=== PATIENT | female | born 1965 | race African-American/Black ===

== ENCOUNTER 2020-06-20 05:35 | Day surgery (SDC) | payer OTHER, SELFPAY ==
[~2020-06-20] VITALS: Ht 175.3 cm; Wt 87.5 kg
[2020-06-20] MEDS ORDERED: CLINDAMYCIN 600 mg/50mL D5W 50 ML IV ONE (07:00)
[2020-06-20] MEDS ORDERED: PROPOFOL 200MG/ 20ML VIAL (DIPRIVAN) IV ONE (07:22)
[2020-06-20] MEDS ORDERED: DEXAMETHASONE SOD PHOSPHATE 4 MG/ML VIAL IVP ONE (07:22)
[2020-06-20] MEDS ORDERED: DESFLURANE 15 MIN GAS INH ONE (07:22)
[2020-06-20] MEDS ORDERED: MIDAZOLAM HCL 5 MG/5 ML VIAL IVP ONE (07:22)
[2020-06-20] MEDS ORDERED: ROCURONIUM BROMIDE 10 MG/ML (ZEMURON) IV ONE (07:22)
[2020-06-20] MEDS ORDERED: BUPIVACAINE /PF 0.25% 30 ML VIAL INJ ONE (07:22)
[2020-06-20] MEDS ORDERED: SUGAMMADEX SODIUM 200 MG/2 ML VIAL IV ONE (07:22)
[2020-06-20] MEDS ORDERED: KETOROLAC TROMETHAMINE 30 MG VIAL IVP ONE (07:22)
[2020-06-20] MEDS ORDERED: ONDANSETRON HCL 4 MG/2 ML VIAL IVP ONE (07:22)
[2020-06-20] MEDS ORDERED: fentaNYL CITRATE/PF 100 MCG/2 ML AMP IVP ONE (07:22)
[2020-06-20] MEDS ORDERED: POLYMYXIN 500,000/BACIT.10,000 UNITS in NS IRR 1 L IR ONE (07:26)
[2020-06-20] MEDS ORDERED: MIDAZOLAM HCL 2 MG/2 ML VIAL (VERSED) IVP PRN (08:15)
[2020-06-20] MEDS ORDERED: ONDANSETRON HCL 4 MG/2 ML VIAL IVP PRN (08:15)
[2020-06-20] MEDS ORDERED: LR 1,000 ML IV SCH (08:15)
[2020-06-20] MEDS ORDERED: METOCLOPRAMIDE HCL 10 MG/2 ML VIAL IVP PRN (08:15)
[2020-06-20] MEDS ORDERED: HYDROmorphone 1 MG INJ. 1 MG/ML AMPUL IVP PRN (08:15)
[2020-06-20] MEDS ORDERED: MEPERIDINE HCL/PF 25 MG/ML DISP.SYRIN IVP PRN (08:15)
[2020-06-20] MEDS ORDERED: LABETALOL 100 MG/ 20ML VIAL IVP PRN (08:15)
[2020-06-20] MEDS ORDERED: BUPIVACAINE LIPOSOME/PF 266 MG/20 ML VIAL INFIL ONE (08:43)
[2020-06-20] MEDS ORDERED: D5/0.45 NS 1,000 ML IV SCH (08:57)
[2020-06-20] MEDS ORDERED: HYDROcodone/ACETAMIN 5-325 MG TAB (NORCO/ VICODIN) PO PRN ×2 (09:00)
[2020-06-20 10:22] VITALS: BP_SYST 123
== END 2020-06-20 12:10 | disposition home or self-care (01) ==
LOC: SDS 05:35 → SMU 05:35 → SDS 12:10
PROVIDERS: ATTEND Colon & Rectal Surgery
DX: K43.6 Other and unspecified ventral hernia with obstruction, without gangrene (principal); R19.00 Intra-abdominal and pelvic swelling, mass and lump, unspecified site; F32.9 Major depressive disorder, single episode, unspecified; G35 Multiple sclerosis; Z88.0 Allergy status to penicillin; Z88.8 Allergy status to other drugs, medicaments and biological substances; Z79.899 Other long term (current) drug therapy; Z11.59 Encounter for screening for other viral diseases
CPT/HCPCS: 49561; 49568; C1781; C9290; C9399; J1100; J1885; J2250; J2405; J2704; J3010; J3490 ×2; J7120; U0003

== ENCOUNTER 2021-03-20 07:15 | Day surgery (SDC) | payer OTHER, SELFPAY ==
[~2021-03-20] VITALS: Ht 175.3 cm; Wt 87.1 kg
[~2021-03-20 07:15] MED LIST: CLINDAMYCIN 600 mg/50mL D5W 50 ML IV ONE
[2021-03-20] MEDS ORDERED: BUPIVACAINE /PF 0.25% 30 ML VIAL INJ ONE (09:30)
[2021-03-20] MEDS ORDERED: LIDOCAINE 2%, 20 ML MDV INJ ONE (09:30)
[2021-03-20] MEDS ORDERED: CLINDAMYCIN PHOSPHATE 600 mg/50mL D5W IV ONE (09:30)
[2021-03-20] MEDS ORDERED: NS IRRIG SOLN 1000 ML IR ONE (09:30)
[2021-03-20] MEDS ORDERED: LR 1,000 ML IV.SOLN IV ONE (09:30)
[2021-03-20] MEDS ORDERED: DEXAMETHASONE SOD PHOSPHATE 4 MG/ML VIAL IVP ONE (09:30)
[2021-03-20] MEDS ORDERED: SUGAMMADEX SODIUM 200 MG/2 ML VIAL IV ONE (09:30)
[2021-03-20] MEDS ORDERED: POLYMYXIN 500,000/BACIT.10,000 UNITS in NS IRR 1 L IR ONE (09:44)
[2021-03-20] MEDS ORDERED: ACETAMINOPHEN I.V. 1000 MG 100 ML IV ONE (09:45)
[2021-03-20] MEDS ORDERED: BUPIVACAINE LIPOSOME/PF 266 MG/20 ML VIAL INFIL ONE (10:20)
[2021-03-20] MEDS ORDERED: HYDROmorphone 1 INJ. 1 MG/ML CARTRIDGE IVP PRN ×2 (10:30→11:30)
[2021-03-20] MEDS ORDERED: METOCLOPRAMIDE HCL 10 MG/2 ML VIAL IVP PRN (10:30)
[2021-03-20] MEDS ORDERED: MEPERIDINE HCL/PF 25 MG/ML DISP.SYRIN IVP PRN (10:30)
[2021-03-20] MEDS ORDERED: MIDAZOLAM HCL 2 MG/2 ML VIAL (VERSED) IVP PRN (10:30)
[2021-03-20] MEDS ORDERED: ONDANSETRON HCL 4 MG/2 ML VIAL IVP PRN (10:30)
[2021-03-20] MEDS ORDERED: LR 1,000 ML IV SCH (10:30)
[2021-03-20] MEDS ORDERED: HYDROcodone/ACETAMIN 5-325 MG TAB (NORCO/ VICODIN) PO PRN ×2 (11:30)
[2021-03-20] MEDS ORDERED: HYDROmorphone 1 INJ. 1 MG/ML CARTRIDGE ONE ×2 (12:00→12:22)
[2021-03-20] MEDS: HYDROmorphone 1 INJ. 1 MG/ML CARTRIDGE IVP PRN ×3 (12:07→12:32)
[2021-03-20 13:25] VITALS: BP_SYST 118
[2021-03-20] MEDS ORDERED: D5/0.45 NS 1,000 ML IV SCH (13:30)
== END 2021-03-20 17:15 | disposition home or self-care (01) ==
LOC: SDS 07:15 → SMU 07:16 → SDS 17:15
PROVIDERS: ATTEND Colon & Rectal Surgery
DX: K43.2 Incisional hernia without obstruction or gangrene (principal); R19.00 Intra-abdominal and pelvic swelling, mass and lump, unspecified site; M79.7 Fibromyalgia; G35 Multiple sclerosis; Z88.0 Allergy status to penicillin; Z88.1 Allergy status to other antibiotic agents; Z82.5 Family history of asthma and other chronic lower respiratory diseases; Z20.828 Contact with and (suspected) exposure to other viral communicable diseases; Z79.899 Other long term (current) drug therapy
CPT/HCPCS: 49565; 49568; 64488; 88304; C9290; C9399; J0131; J1100; J1170; J2001; J3490 ×2; J7120; L8699; U0003; 88305

== ENCOUNTER 2021-03-20 20:29 | Emergency (ER) | payer OTHER, SELFPAY ==
[~2021-03-20] VITALS: Ht 175.3 cm; Wt 81.6 kg
[2021-03-20 20:35] VITALS: BP_SYST 141
--- NOTE | 2021-03-20 20:48 | NUR ---
Placed in room 8 . Placed on cardiac cath technician, blood pressure machine and pulse oximeter. To gown for exam. Side rails up. Report given to HORACIO KRAMER.
--- NOTE | 2021-03-20 20:49 | NUR ---
Came in ER per wheelchair accompanied by , RYANNE, breathing spontaneous at room air, not in distress noted. With chief complaints post operative site bleeding, statis herniorrhapy today as outpatient. History of multiple sclerosis. Vital signs stable
--- NOTE | 2021-03-20 20:53 | NUR ---
ER at bedside examining patient.
--- NOTE | 2021-03-20 21:15 | NUR ---
Dr. Negrete ordered to change the post op dressing, shelter supervisor Piper contacted if they have available OMnifix dressing, according to her no available.
--- NOTE | 2021-03-20 21:45 | NUR ---
Dressing changed aseptically with non adhesive dressing, abdominal pad and transparent surgitape, no active bleeding noted.
[2021-03-20 22:10] VITALS: BP_SYST 132
--- NOTE | 2021-03-20 22:10 | NUR ---
Patient given written and verbal discharge instructions and verbalizes understanding. ER MD discussed with patient the results and treatment provided. Patient in stable condition. ID arm band removed. Patient educated on pain management and to follow up with PMD. Pain Scale 3/10. Opportunity for questions provided and answered.
== END 2021-03-20 22:10 | disposition home or self-care (01) ==
LOC: SED 20:29
DX: N99.820 Postprocedural hemorrhage of a genitourinary system organ or structure following a genitourinary system procedure (principal)
CPT/HCPCS: 99281